=== PATIENT | female | born 1965 | race African-American/Black ===

== ENCOUNTER → 2020-12-24 03:24 | Outpatient (CLI) | payer OTHER, SELFPAY ==
[2020-12-24 20:30] LABS: SARS-CoV-2 RNA PCR Negative
== END ==
PROVIDERS: Visit Provider Internal Medicine Gastroenterology
DX: Z01.812 Encounter for preprocedural laboratory examination (principal); Z20.822 Contact with and (suspected) exposure to COVID-19
CPT/HCPCS: C9803; U0003; U0005

== ENCOUNTER 2020-12-27 01:21 | Day surgery (SDC) | payer OTHER, SELFPAY ==
[2020-12-19 08:20] VITALS: BMI 43.9
[2020-12-27 10:35] VITALS: BP 149/83; PULSE 72; RESP 18; TEMP 36.3; O2SAT 99; BMI 45.8
--- NOTE | 2020-12-27 11:09 | WPDANESEPPF ---
Anes - Initial Pre Proc Eval Procedure: Operation Date: 12/27/20 11:45 Proposed Procedures p Screening Colonoscopy - Judd Landrum MD Date/Time: 12/27/20 11:09 Surgeon: Judd Landrum MD Pre Op Diagnosis: neoplasm screening, family hx colon polyps Patient Data Age: 55 Gender: F Height: 5 ft 9 in Weight: 141 kg Last Vital Signs Temp 97.4 F L 12/27/20 10:35 Pulse 72 12/27/20 10:35 Resp 18 12/27/20 10:35 BP 149/83 H 12/27/20 10:35 Pulse Ox 99 12/27/20 10:35 Allergies Allergy/AdvReac Type Severity Reaction Status Date / Time No Known Allergies Allergy Verified 12/27/20 10:35 Home Medications Medication Instructions Recorded Confirmed Type amlodipine 5 mg tablet 5 mg PO DAILY 10/14/20 12/27/20 History hydrochlorothiazide 25 mg tablet 25 mg PO DAILY 10/14/20 12/27/20 History sodium,potassium,mag sulfates 17.5 See Rx Instructions PO .COMPLEX 10/31/20 Rx gram-3.13 gram-1.6 gram oral soln #354 ml Patient hx anesthesia problems: none Family hx anesthesia problems: none PMFSH Past Medical History Medical History Anemia Hypertension Surgical History Surgical History History of ankle surgery History of bilateral breast reduction surgery History of partial hysterectomy Family History Family History Father Carcinoma of colon Mother Hypertension Social History Social History Smoking status: Never smoker Alcohol intake: unknown Substance use: never Substance use type: does not use Gender identity (if verbalized by the patient): Female Anes - Eval Final PreProcedure Day of Procedure 12/27/20 11:09 Patient weight: morbidly obese Heart: regular rate and rhythm Lungs: clear to auscultation Airway: Mallampati scale class II Neurological: alert and oriented Last oral intake: >/= 8 hours ASA classification: III Emergent: no Anesthetic plan: proceed Anesthesia type and monitoring: general GIVS and standard monitoring Informed Consent: The patient's anesthetic plan and its attendant risks and benefits were discussed with the patient/family/POA. Questions were solicited and answers provided to the satisfaction of the patient/family/POA.
[2020-12-27] MEDS: LACTATED RINGERS 1,000 ML 150 ML IV CONT (11:12)
--- NOTE | 2020-12-27 11:25 | PM.HPGS ---
History of Present Illness History of Present Illness Consent: Risks, benefits, and alternatives have been discussed and questions answered. Patient agrees to proceed with procedure. Chief complaint: neoplasm screening, family hx colon polyps Narrative: Deedee Lester is a 55 year old female with last colonoscopy 5 years ago, father had colon cancer Review of Systems Constitutional: Constitutional: Denies headache(s) and Denies weakness Eyes: Eyes: Denies blurry vision ENT: Reports Normal hearing present, Denies headache(s) and Denies neck pain Cardiovascular: Cardiovascular: Denies chest pain and Denies dyspnea Respiratory: Respiratory: Denies dyspnea Gastrointestinal: Gastrointestinal: Reports no additional gastrointestinal complaints Genitourinary: Genitourinary: Denies dysuria Musculoskeletal: Musculoskeletal: Denies neck pain Integumentary/Breasts: Skin/Breast: Denies dry skin Neurologic: Reports Normal hearing present, Denies headache(s) and Denies weakness Psychiatric: Psychiatric: Denies anxiety Endocrine: Endocrine: Denies change in body appearance Hematologic/Lymphatic: Hematologic/Lymphatic: Denies easy bleeding Allergic/Immunologic: Allergic/Immunologic: Denies urticaria PMFSH Past Medical History Medical History Anemia Hypertension Surgical History Surgical History History of ankle surgery History of bilateral breast reduction surgery History of partial hysterectomy Family History Family History Father Carcinoma of colon Mother Hypertension Social History Social History Smoking status: Never smoker Alcohol intake: unknown Substance use: never Substance use type: does not use Gender identity (if verbalized by the patient): Female Meds Home Medications and Allergies Home Medications Medication Instructions Recorded Confirmed Type amlodipine 5 mg tablet 5 mg PO DAILY 10/14/20 12/27/20 History hydrochlorothiazide 25 mg tablet 25 mg PO DAILY 10/14/20 12/27/20 History sodium,potassium,mag sulfates 17.5 See Rx Instructions PO .COMPLEX 10/31/20 Rx gram-3.13 gram-1.6 gram oral soln #354 ml Allergies Allergy/AdvReac Type Severity Reaction Status Date / Time No Known Allergies Allergy Verified 12/27/20 10:35 Vital Signs Vital Signs - 24 hr 12/27/20 10:35 Temperature 97.4 F L Pulse Rate 72 Respiratory Rate 18 Blood Pressure 149/83 H Pulse Oximetry 99 Exam Const: General: comfortable and no acute distress HENMT: General nose exam: Normal nares present Eyes: General: appearance normal, both eyes and all related structures Neck: Neck: no JVD Resp: Auscultation: clear to auscultation bilaterally Cardio: Rate: regular rate Rhythm: regular rhythm GI: Inspection: non-distended GI Palp: Yes Soft to palpation Skin: General skin exam: normal color Neuro: General: gait normal Speech: normal speech Extrem: General: normal to inspection Psych: Mental Status: mental status grossly normal Assessment and Plan Assessment and plan (1) Family history of colon cancer in father: Code(s): Z80.0 - Family history of malignant neoplasm of digestive organs Status: Acute Assessment and Plan: colonoscopy
[2020-12-27 11:47] VITALS: BP 119/74; PULSE 65; RESP 20; O2SAT 97
[2020-12-27 11:57] VITALS: BP 135/76; PULSE 61; RESP 21; O2SAT 100
[2020-12-27 12:07] VITALS: BP 137/78; PULSE 68; RESP 20; O2SAT 100
== END 2020-12-27 12:50 | disposition home or self-care (01) ==
PROVIDERS: Referring Provider Obstetrics & Gynecology; Visit Provider Internal Medicine Gastroenterology
PROC: 0DJD8ZZ Inspection of Lower Intestinal Tract, Via Natural or Artificial Opening Endoscopic (ICD-10-PCS; CPT 45378; principal; 2020-12-27 11:45)
DX: Z12.11 Encounter for screening for malignant neoplasm of colon (principal); K64.8 Other hemorrhoids; Z80.0 Family history of malignant neoplasm of digestive organs; Z83.71 Family history of colonic polyps; I10 Essential (primary) hypertension; D64.9 Anemia, unspecified; E66.01 Morbid (severe) obesity due to excess calories; Z68.42 Body mass index [BMI] 45.0-49.9, adult
CPT/HCPCS: 45378; C9803; J2704; J7120; U0003; U0005